=== PATIENT | female | born 1985 | race Caucasian/White ===

== ENCOUNTER 2017-07-18 23:03 | Emergency (ER) | END 2017-07-19 05:45 | disposition home or self-care (01) ==

== ENCOUNTER 2018-08-05 22:33 | Emergency (ER) | payer SELFPAY ==
[~2018-08-05] VITALS: Ht 162.6 cm; Wt 92.0 kg
[~2018-08-05 22:33] MED LIST: IBUP-1542 PO
[2018-08-05 22:44] VITALS: Ht 162.6 cm; Wt 92.0 kg
[2018-08-06] MEDS ORDERED: PHEN-538 PO (01:21)
[2018-08-06] MEDS ORDERED: NITR-58 PO (01:21)
[2018-08-06 01:32] VITALS: BP 157/94; PULSE 93; RESP 20
--- NOTE | 2018-08-06 07:31 | ERD ---
ER Documentation Chief Complaint Chief Complaint HEMATURIA X TODAY WITH REPORTS OF BLADDER DISCOMFORT HPI 32-year-old female presents for bloody urine times 1 day. She also notes that she has pain with urination. She also admits to polyuria. Denies fevers or chills. Denies abdominal pain, nausea, vomiting. ROS All systems reviewed and are negative except as per history of present illness. Medications Home Meds Active Scripts Phenazopyridine Hcl* (Pyridium*) 200 Mg Tab, 200 MG PO TID for uti for 2 Days, #6 TAB Prov:LEXIE SERRANO DO 08/06/18 Nitrofurantoin Monohyd Macrocr* (Macrobid*) 100 Mg Capsr, 100 MG PO BID for uti for 5 Days, #10 CAP Prov:LEXIE SERRANO DO 08/06/18 Ibuprofen* (Motrin*) 600 Mg Tab, 600 MG PO Q6, #30 TAB Prov:MULUASHOK 07/19/17 Allergies Allergies: Coded Allergies: No Known Allergy (Unverified , 01/20/13) PMhx/Soc History of Surgery: Yes (c/section x2) Anesthesia Reaction: No Hx Neurological Disorder: No Hx Respiratory Disorders: No Hx Cardiac Disorders: No Hx Psychiatric Problems: No Hx Miscellaneous Medical Probl: Yes (ovarian cyst) Hx Alcohol Use: No Hx Substance Use: No Hx Tobacco Use: No Physical Exam Vitals Vital Signs Date Temp Pulse Resp B/P (MAP) Pulse Ox O2 O2 Flow FiO2 Time Delivery Rate 08/06/18 98.0 93 20 157/94 98 Room Air 01:32 (115) 08/05/18 99.2 108 18 163/99 99 22:44 (120) Physical Exam Const: No acute distress Resp: Clear to auscultation bilaterally Cardio: Regular rate and rhythm, no murmurs Abd: Soft, non tender, non distended. Normal bowel sounds Skin: No petechiae or rashes Back: No midline or flank tenderness Ext: No cyanosis, or edema Neur: Awake and alert Psych: Normal Mood and Affect Results 24 hrs Laboratory Tests Test 08/06/18 00:19 08/06/18 00:27 Urine Color RED Urine Clarity BLOODY Urine pH 5.0 Urine Specific [place] 1.035 Urine Ketones NEGATIVE mg/dL Urine Nitrite POSITIVE mg/dL Urine Bilirubin NEGATIVE mg/dL Urine Urobilinogen NEGATIVE mg/dL Urine Leukocyte Esterase 2+ Sintia/ul Urine Microscopic RBC > 182 /HPF Urine Microscopic WBC > 182 /HPF Urine Mucus MANY /HPF Urine Hemoglobin 3+ mg/dL Urine Glucose 1% mg/dL Urine Total Protein 2+ mg/dl POC Beta HCG, Qualitative NEGATIVE Procedures/MDM Medical Decision Making: Differential diagnosis includes but not limited to bladder infection, pyelonephritis, urethritis Patient appeared well on physical exam. No history of fever low back pain, low suspicion for pyelonephritis. UA was consistent with a urinary tract infection And test was negative Prescription(s): Patient given prescription for Macrobid and Motrin. Urine culture was sent. Patient advised to follow up with PCP in 1-2 days. Patient advised to return to ED for new or worsening symptoms. Patient stable on discharge from the ED. Disclaimer: Inadvertent spelling and grammatical errors are likely due to EHR/dictation software use and do not reflect on the overall quality of patient care. Also, please note that the electronic time recorded on this note does not necessarily reflect the actual time of the patient encounter. Departure Diagnosis: Primary Impression: UTI (urinary tract infection) Additional Impression: Hematuria Condition: Fair Patient Instructions: Understanding Urinary Tract Infections (UTIs), Hematuria Referrals: COMM[facility]ITY CLIN[facility] YOU HAVE RECEIVED A MEDICAL SCREENING EXAM AND THE RESULTS INDICATE THAT YOU DO NOT HAVE A CONDITION THAT REQUIRES URGENT TREATMENT IN THE EMERGENCY DEPARTMENT. FURTHER EVALUATION AND TREATMENT OF YOUR CONDITION CAN WAIT UNTIL YOU ARE SEEN IN YOUR DOCTORS OFFICE WITHIN THE NEXT 1-2 DAYS. IT IS YOUR RESPONSIBILITY TO MAKE AN APPOINTMENT FOR FOLOW-UP CARE. IF YOU HAVE A PRIMARY DOCTOR --you should call your primary doctor and schedule an appointment IF YOU DO NOT HAVE A PRIMARY DOCTOR YOU CAN CALL OUR PHYSICIAN REFERRAL HOTLINE AT IF YOU CAN NOT AFFORD TO SEE A PHYSICIAN YOU CAN CHOSE FROM THE FOLLOWING [facility] [address] [facility] [address] [facility] [address] [facility] [address] [facility] [address] [facility] [facility]. [address] Additional Instructions: Call your primary care doctor TOMORROW for an appointment during the next 1-2 days.See the doctor sooner or return here if your condition worsens before your appointment time. Follow up with primary doctor if no improvement in symptoms with antibiotics LEXIE SERRANO DO Aug 06, 2018 07:31
== END 2018-08-06 01:33 | disposition home or self-care (01) ==
LOC: FTE 22:33
DX: N39.0 Urinary tract infection, site not specified (principal)
CPT/HCPCS: 81001; 81025; 87086; 99283